=== PATIENT | female | born 1990 | race African-American/Black ===

== ENCOUNTER 2017-05-27 09:26 | Emergency (ER) | payer MEDICAID ==
[~2017-05-27] VITALS: Ht 170.2 cm; Wt 82.0 kg
[2017-05-27] MEDS ORDERED: IBUPROFEN 600MG TABLET PO ONE (12:00)
[2017-05-27 12:14] VITALS: BP 117/71
== END 2017-05-27 12:42 | disposition home or self-care (01) ==
LOC: ER 09:38
DX: S09.8XXA Other specified injuries of head, initial encounter (principal); M54.2 Cervicalgia; V43.52XA Car driver injured in collision with other type car in traffic accident, initial encounter; Y93.89 Activity, other specified; Y99.8 Other external cause status; Y92.410 Unspecified street and highway as the place of occurrence of the external cause
CPT/HCPCS: 81025; 99282

== ENCOUNTER 2018-09-19 07:43 | Emergency (ER) | payer MEDICAID ==
[~2018-09-19] VITALS: Ht 172.7 cm; Wt 91.0 kg
[2018-09-19 09:29] LABS: CLARITY URINE CLEAR (CLEAR); COLOR URINE YELLOW (YELLOW); KETONES URINE NEGATIVE (NEGATIVE); LEUKOCYTE ESTERASE URINE NEGATIVE (NEGATIVE); NITRITE URINE NEGATIVE (NEGATIVE); OCCULT BLOOD URINE 2+ (NEGATIVE); PROTEIN URINE NEGATIVE (NEGATIVE); SPECIFIC GRAVITY URINE 1.017 (1.005-1.030); UROBILINOGEN URINE 0.2 E.U./dL (0.2-1.0)
[2018-09-19 09:44] VITALS: BP 118/85
== END 2018-09-19 09:48 | disposition home or self-care (01) ==
LOC: ER 07:43
DX: N76.0 Acute vaginitis (principal); F12.10 Cannabis abuse, uncomplicated; F17.200 Nicotine dependence, unspecified, uncomplicated
CPT/HCPCS: 81025; 99283

== ENCOUNTER 2021-07-11 05:41 | Emergency (ER) | payer MEDICAID, OTHER ==
[~2021-07-11] VITALS: Ht 170.2 cm; Wt 84.0 kg
[2021-07-11 05:45] VITALS: BP 128/91
[2021-07-11 07:27] LABS: CLARITY URINE CLOUDY (CLEAR); COLOR URINE DARK YELLOW (YELLOW); KETONES URINE 1+ (NEGATIVE); LEUKOCYTE ESTERASE URINE 2+ (NEGATIVE); NITRITE URINE NEGATIVE (NEGATIVE); OCCULT BLOOD URINE NEGATIVE (NEGATIVE); PH URINE 6.5 (4.5-8.0); PROTEIN URINE 1+ (NEGATIVE); SPECIFIC GRAVITY URINE 1.035 (1.005-1.030)
[2021-07-11] MEDS ORDERED: NITR100C MT (08:26)
== END 2021-07-11 08:46 | disposition home or self-care (01) ==
LOC: ER 05:41
DX: N39.0 Urinary tract infection, site not specified (principal)
CPT/HCPCS: 81003; 81025; 99283

== ENCOUNTER 2024-07-17 11:40 | Emergency (ER) | payer OTHER ==
[~2024-07-17] VITALS: Ht 170.2 cm; Wt 82.0 kg
[~2024-07-17 11:40] MED LIST: NITR100C MT
[2024-07-17 12:13] VITALS: O2SAT 100
[2024-07-17] MEDS ORDERED: PRED10TA MT (12:23)
[2024-07-17] MEDS ORDERED: DIPH103G TP (12:23)
[2024-07-17] MEDS: PREDNISONE 20MG TABLET PO ONE (12:44)
[2024-07-17 12:50] VITALS: BP 117/79; PULSE 75; RESP 15; TEMP 36.8; O2SAT 100
== END 2024-07-17 12:51 | disposition home or self-care (01) ==
LOC: ER 11:40
DX: R21 Rash and other nonspecific skin eruption (principal); F10.90 Alcohol use, unspecified, uncomplicated; F12.90 Cannabis use, unspecified, uncomplicated; Y90.9 Presence of alcohol in blood, level not specified
CPT/HCPCS: 99283; J7512